=== PATIENT | female | born 1960 | race African-American/Black ===

== ENCOUNTER → 2016-10-24 | Outpatient (CLI) | payer BC ==
--- NOTE | ~2016-10-24 | MY11 ---
[facility] A Service of [facility] RADIOLOGY TEXT RESULTS PATIENT: RUBINA WHITTEN LOCATION: [facility] : 62 UNIT #: [id number] AGE: [address]: Barrington Jimenez MD SEX: F ORDER DR: [id number] [facility] [address] [place], [place] [address] [id number] O MR#: [id number] Acc #: [id number] NAME: RUBINA WHITTEN : 1960 SEX: F STUDY DATE/TIME: 10/24/2016 8:01 UNIT: [facility] ROOM: STUDY DESCRIPTION: MY Mammogram Screening Dig [place] Attending Physician: Barrington Jimenez M.D. Referring Physician: Barrington Jimenez M.D. Ordering Physician: Barrington Jimenez M.D. Primary Care Physician: Barrington Jimenez M.D. MEDICAL IMAGING REPORT This report is preliminary unless electronic signature is present EXAM Bilateral digital screening mammogram with CAD device, 10/24/2016. HISTORY Routine screening. FINDINGS Digital imaging was completed with standard two-view screening evaluation in craniocaudal and mediolateral-oblique projections. Review and interpretation of digital mammograms include a second review in conjunction with FDA-approved CAD device. The parenchymal pattern is somewhat dense bilaterally, consistent with a fibroglandular presentation. There are no dominant masses. I see no suspicious microcalcifications and identify no focal architectural disturbance. IMPRESSION Negative screening mammogram. Annual followup recommended. Patients over the age of 40 are entered into a reminder system with target due date for the next mammogram. A result letter will also be sent to the patient. BIRADS: 1 Negative Dictated by... Geovani Stanley M.D. THIS IS AN ELECTRONICALLY VERIFIED REPORT Geovani Stanley M.D. at 10/25/2016 7:44 AM ROSENDA/po [facility] A Service of [facility] RADIOLOGY TEXT RESULTS PATIENT: RUBINA WHITTEN LOCATION: [facility] : 62 UNIT #: [id number] AGE: [address]: Barrington Jimenez MD SEX: F ORDER DR: TD: 10/24/2016 10:18 JOB #: [id number] MEDICAL IMAGING REPORT Page 1 of 1 COPY
== END | disposition home or self-care (01) ==
LOC: CWCC 07:33
DX: Z12.31 Encounter for screening mammogram for malignant neoplasm of breast (principal)
CPT/HCPCS: G0202